=== PATIENT | male | born 1960 | race African-American/Black ===

== ENCOUNTER 2017-03-18 17:04 | Emergency (ER) | payer MEDICAID ==
[~2017-03-18] VITALS: Ht 180.3 cm; Wt 80.0 kg
[2017-03-18] MEDS ORDERED: SODIUM CHLORIDE 0.9% 1,000 ML IV ONE (17:38)
[2017-03-18 18:02] LABS: BASOPHILS % 0.4 % (0.0-2.0); EOSINOPHILS % 1.3 % (0.0-5.0); HEMATOCRIT. 45.6 % (42.0-52.0); HEMOGLOBIN. 15.2 g/dL (14.0-18.0); LYMPHOCYTES % 28.1 % (20.0-50.0); MEAN CORPUSCULAR HEMOGLOBIN 30.4 pg (28.0-32.0); MEAN CORPUSCULAR VOLUME 91.3 fL (80.0-94.0); MEAN PLATELET VOLUME 8.3 fl (7.4-10.4); NEUTROPHILS % 59.2 % (40.0-76.0); PLATELET 193 x1000/uL (130-400); RED BLOOD CELL COUNT 4.99 mill/uL (4.7-6.1); RED CELL DISTRIBUTION WIDTH 14.1 % (11.6-14.6)
[2017-03-18 18:09] LABS: PROTHROMBIN TIME 10.7 sec
[2017-03-18 18:10] LABS: CHLORIDE 103 mEq/L (98-107)
[2017-03-18 18:16] LABS: CLARITY URINE CLEAR (CLEAR); COLOR URINE YELLOW (YELLOW); GLUCOSE URINE NEGATIVE (NEGATIVE); KETONES URINE NEGATIVE (NEGATIVE); LEUKOCYTE ESTERASE URINE NEGATIVE (NEGATIVE); NITRITE URINE NEGATIVE (NEGATIVE); OCCULT BLOOD URINE NEGATIVE (NEGATIVE); PH URINE 7.5 (4.5-8.0); PROTEIN URINE NEGATIVE (NEGATIVE); SPECIFIC GRAVITY URINE 1.006 (1.005-1.030)
[2017-03-18 18:17] LABS: CARBON DIOXIDE 28 mEq/L (21-32); ETHANOL BLOOD < 10 mg/dL
[2017-03-18 18:57] LABS: *AMPHETAMINES SCREEN URINE NEGATIVE (NEGATIVE); *BARBITURATES SCREEN URINE NEGATIVE (NEGATIVE); *BENZODIAZEPINES SCREEN URINE NEGATIVE (NEGATIVE); *COCAINE SCREEN URINE NEGATIVE (NEGATIVE); CANNABINOID URINE SCREEN PRESUMTIVE POSITIVE (NEGATIVE); METHADONE URINE SCREEN NEGATIVE (NEGATIVE); OPIATES URINE SCREEN NEGATIVE (NEGATIVE); PHENCYCLIDINE URINE SCREEN PRESUMTIVE POSITIVE (NEGATIVE)
[2017-03-18 21:15] VITALS: BP 125/80
== END 2017-03-18 21:40 | disposition home or self-care (01) ==
LOC: ER 18:39
DX: R53.1 Weakness (principal); G35 Multiple sclerosis; G82.20 Paraplegia, unspecified; D72.829 Elevated white blood cell count, unspecified; F16.10 Hallucinogen abuse, uncomplicated; R00.1 Bradycardia, unspecified; S14.109S Unspecified injury at unspecified level of cervical spinal cord, sequela; X58.XXXS Exposure to other specified factors, sequela
CPT/HCPCS: 36415; 70450; 71010; 80053; 80305; 81003; 85025; 85610; 93005; 96360; 96361; 99285; G0482; J7030; Z7610

== ENCOUNTER 2018-01-10 01:58 | Emergency (ER) | payer MEDICAID ==
[~2018-01-10] VITALS: Ht 188 cm; Wt 90.0 kg
[2018-01-10] MEDS ORDERED: SODIUM CHLORIDE 0.9% 1,000 ML IV ONE (05:07)
[2018-01-10 05:40] LABS: BASOPHILS % 0.4 % (0.0-2.0); CHLORIDE 109 mEq/L (98-107); EOSINOPHILS % 1.7 % (0.0-5.0); HEMATOCRIT. 46.1 % (42.0-52.0); HEMOGLOBIN. 15.2 g/dL (14.0-18.0); LYMPHOCYTES % 18.8 % (20.0-50.0); MEAN CORPUSCULAR HEMOGLOBIN 29.9 pg (28.0-32.0); MEAN CORPUSCULAR VOLUME 90.7 fL (80.0-94.0); MEAN PLATELET VOLUME 8.4 fl (7.4-10.4); MONOCYTES % 9.4 % (2.0-8.0); NEUTROPHILS % 69.7 % (40.0-76.0); PLATELET 183 x1000/uL (130-400); RED BLOOD CELL COUNT 5.08 mill/uL (4.7-6.1); RED CELL DISTRIBUTION WIDTH 14.4 % (11.6-14.6)
[2018-01-10 05:41] LABS: PROTHROMBIN TIME 10.7 sec (9.4-11.6)
[2018-01-10 05:47] LABS: AMMONIA 21 uMol/L (<32)
[2018-01-10 05:48] LABS: ETHANOL BLOOD < 10 mg/dL
[2018-01-10 06:42] LABS: CLARITY URINE CLEAR (CLEAR); COLOR URINE YELLOW (YELLOW); KETONES URINE TRACE (NEGATIVE); LEUKOCYTE ESTERASE URINE NEGATIVE (NEGATIVE); NITRITE URINE NEGATIVE (NEGATIVE); OCCULT BLOOD URINE TRACE (NEGATIVE); PROTEIN URINE TRACE (NEGATIVE); SPECIFIC GRAVITY URINE 1.027 (1.005-1.030)
[2018-01-10 07:02] LABS: *AMPHETAMINES SCREEN URINE NEGATIVE (NEGATIVE)
[2018-01-10 07:03] LABS: *BARBITURATES SCREEN URINE NEGATIVE (NEGATIVE); *BENZODIAZEPINES SCREEN URINE NEGATIVE (NEGATIVE); *COCAINE SCREEN URINE NEGATIVE (NEGATIVE); METHADONE URINE SCREEN NEGATIVE (NEGATIVE); OPIATES URINE SCREEN NEGATIVE (NEGATIVE); PHENCYCLIDINE URINE SCREEN PRESUMTIVE POSITIVE (NEGATIVE)
[2018-01-10 07:04] LABS: CANNABINOID URINE SCREEN PRESUMTIVE POSITIVE (NEGATIVE)
[2018-01-10 08:40] VITALS: BP 140/96
== END 2018-01-10 09:10 | disposition home or self-care (01) ==
LOC: ER 01:58
DX: T40.991A Poisoning by other psychodysleptics [hallucinogens], accidental (unintentional), initial encounter (principal); G92 Toxic encephalopathy; F17.200 Nicotine dependence, unspecified, uncomplicated; F19.10 Other psychoactive substance abuse, uncomplicated; G82.20 Paraplegia, unspecified; G35 Multiple sclerosis; Y92.89 Other specified places as the place of occurrence of the external cause
CPT/HCPCS: 36415; 70450; 71045; 80053; 80305; 80307; 80329; 81003; 82140; 83605; 83690; 83880; 84443; 84484; 85025; 85610; 93005; 96360; 96361; 99285; G0482; J7030

== ENCOUNTER 2020-12-23 16:43 | Inpatient (IN) | payer MEDICAID ==
[~2020-12-23] VITALS: Ht 180.3 cm; Wt 73.0 kg
[~2020-12-23 16:43] MED LIST: ALBU18HF2 IH; BENZ-16 MT; FLUT1DIS3 INH; LEVO750T21 MT
[2020-12-23 17:59] LABS: BASOPHILS % 0.2 % (0.0-2.0); EOSINOPHILS % 0.5 % (0.0-5.0); HEMATOCRIT. 45.9 % (42.0-52.0); HEMOGLOBIN. 15.3 g/dL (14.0-18.0); LYMPHOCYTES % 19.4 % (20.0-50.0); MEAN CORPUSCULAR HEMOGLOBIN 30.5 pg (28.0-32.0); MEAN CORPUSCULAR VOLUME 91.3 fL (80.0-94.0); MEAN PLATELET VOLUME 8.4 fl (7.4-10.4); MONOCYTES % 11.4 % (2.0-8.0); NEUTROPHILS % 68.5 % (40.0-76.0); PLATELET 199 x1000/uL (130-400); RED BLOOD CELL COUNT 5.03 mill/uL (4.7-6.1)
[2020-12-23 18:06] LABS: CHLORIDE 105 mEq/L (98-107)
[2020-12-23 18:15] LABS: CREATINE KINASE 199 IU/L (39-308)
[2020-12-23 21:49] VITALS: BP 151/87
[2020-12-23 21:51] VITALS: BP 151/87
[2020-12-23] MEDS ORDERED: DOCUSATE SODIUM 100MG CAPSULE PO PRN (22:00)
[2020-12-23] MEDS ORDERED: IPRATROPIUM/ALBUTEROL 0.5-3(2.5)MG/3ML NEB HHN PRN (22:00)
[2020-12-23] MEDS: SODIUM CHLORIDE 0.9% INJ 3ML FLUSH IVF SCH (22:00)
[2020-12-23] MEDS ORDERED: MAGNESIUM/ALUMINUM HYDROXIDE/SIMETHICONE 30ML UDC PO PRN (22:00)
[2020-12-23] MEDS ORDERED: ACETAMINOPHEN 325MG TABLET PO PRN (22:00)
[2020-12-23] MEDS ORDERED: CLONIDINE 0.1MG TABLET PO PRN (22:00)
[2020-12-23] MEDS ORDERED: HYDROCODONE/ACETAMINOPHEN 5/325MG TABLET PO PRN (22:00)
[2020-12-23] MEDS ORDERED: GUAIFENESIN 200MG/10ML SUGAR FREE UDC PO PRN (22:00)
[2020-12-23] MEDS ORDERED: DIPHENHYDRAMINE 50MG/ML VIAL IV PRN (22:00)
[2020-12-23] MEDS ORDERED: ONDANSETRON HCL 4MG/2ML INJ IV PRN (22:00)
[2020-12-23] MEDS ORDERED: HYDRALAZINE 20MG/ML VIAL IV PRN (22:00)
[2020-12-23] MEDS ORDERED: HYDRALAZINE 10 MG in SODIUM CHLORIDE 0.9% 49.5 ML IV PRN (22:15)
[2020-12-24] VITALS: BP 107/51
[2020-12-24 04:00] VITALS: BP 126/70
[2020-12-24 05:00] LABS: CLARITY URINE CLEAR (CLEAR); COLOR URINE YELLOW (YELLOW); KETONES URINE NEGATIVE (NEGATIVE); LEUKOCYTE ESTERASE URINE TRACE (NEGATIVE); NITRITE URINE NEGATIVE (NEGATIVE); OCCULT BLOOD URINE NEGATIVE (NEGATIVE); PROTEIN URINE NEGATIVE (NEGATIVE); SPECIFIC GRAVITY URINE 1.028 (1.005-1.030); UROBILINOGEN URINE 0.2 E.U./dL (0.2-1.0)
[2020-12-24 05:12] LABS: *BARBITURATES SCREEN URINE NEGATIVE (NEGATIVE); *BENZODIAZEPINES SCREEN URINE NEGATIVE (NEGATIVE)
[2020-12-24 05:13] LABS: *AMPHETAMINES SCREEN URINE NEGATIVE (NEGATIVE); *COCAINE SCREEN URINE PRESUMTIVE POSITIVE (NEGATIVE); CANNABINOID URINE SCREEN PRESUMTIVE POSITIVE (NEGATIVE); METHADONE URINE SCREEN NEGATIVE (NEGATIVE); OPIATES URINE SCREEN NEGATIVE (NEGATIVE); PHENCYCLIDINE URINE SCREEN PRESUMTIVE POSITIVE (NEGATIVE)
[2020-12-24 06:52] LABS: CHLORIDE 106 mEq/L (98-107)
[2020-12-24 07:05] LABS: BASOPHILS % 0.2 % (0.0-2.0); EOSINOPHILS % 1.6 % (0.0-5.0); HEMATOCRIT. 43.2 % (42.0-52.0); HEMOGLOBIN. 13.7 g/dL (14.0-18.0); LYMPHOCYTES % 31.8 % (20.0-50.0); MEAN CORPUSCULAR HEMOGLOBIN 29.5 pg (28.0-32.0); MEAN CORPUSCULAR VOLUME 92.9 fL (80.0-94.0); MEAN PLATELET VOLUME 8.6 fl (7.4-10.4); MONOCYTES % 11.3 % (2.0-8.0); NEUTROPHILS % 55.1 % (40.0-76.0); PLATELET 189 x1000/uL (130-400); RED BLOOD CELL COUNT 4.65 mill/uL (4.7-6.1); RED CELL DISTRIBUTION WIDTH 14.8 % (11.6-14.6)
[2020-12-24 08:00] VITALS: BP 140/76
[2020-12-24] MEDS: ENOXAPARIN 40MG/0.4ML SYR SUBCUT SCH (08:20)
[2020-12-24 12:00] VITALS: BP 129/89
[2020-12-24] MEDS: SODIUM CHLORIDE 0.9% INJ 3ML FLUSH IVF SCH ×2 (14:28→22:00)
[2020-12-24 16:00] VITALS: BP 131/72
[2020-12-24 20:27] VITALS: BP 128/82
[2020-12-25] VITALS (7 sets, daily range): BP systolic 112–166; BP diastolic 61–96
[2020-12-25] MEDS: SODIUM CHLORIDE 0.9% INJ 3ML FLUSH IVF SCH ×3 (06:33→22:00)
[2020-12-25] MEDS: ENOXAPARIN 40MG/0.4ML SYR SUBCUT SCH (08:59)
[2020-12-25] MEDS: MORPHINE SULFATE 2 MG/ML CPJ (NOT FOR IM USE) IV PRN (18:06)
[2020-12-25] MEDS: LORAZEPAM 2MG/ML CPJ IV PRN (23:26)
[2020-12-26] VITALS: BP 139/87
[2020-12-26 04:00] VITALS: BP 139/99
[2020-12-26] MEDS: SODIUM CHLORIDE 0.9% INJ 3ML FLUSH IVF SCH ×3 (06:28→22:00)
[2020-12-26 08:00] VITALS: BP 147/89
[2020-12-26] MEDS: ENOXAPARIN 40MG/0.4ML SYR SUBCUT SCH (09:50)
[2020-12-26] MEDS: MORPHINE SULFATE 2 MG/ML CPJ (NOT FOR IM USE) IV PRN ×2 (09:50→18:41)
[2020-12-26 12:00] VITALS: BP 121/77
[2020-12-26 16:00] VITALS: BP 115/62
[2020-12-26 20:00] VITALS: BP 106/72
[2020-12-27] VITALS (7 sets, daily range): BP systolic 105–124; BP diastolic 69–83
[2020-12-27] MEDS: SODIUM CHLORIDE 0.9% INJ 3ML FLUSH IVF SCH ×3 (06:00→22:00)
[2020-12-27] MEDS: LORAZEPAM 2MG/ML CPJ IV PRN (07:14)
[2020-12-27] MEDS: ENOXAPARIN 40MG/0.4ML SYR SUBCUT SCH (08:16)
[2020-12-27] MEDS: MORPHINE SULFATE 2 MG/ML CPJ (NOT FOR IM USE) IV PRN ×2 (08:28→20:07)
[2020-12-28] VITALS: BP 109/70
[2020-12-28 04:00] VITALS: BP 119/86
[2020-12-28] MEDS: SODIUM CHLORIDE 0.9% INJ 3ML FLUSH IVF SCH ×2 (06:00→12:42)
[2020-12-28 08:00] VITALS: BP 91/66
[2020-12-28] MEDS: ENOXAPARIN 40MG/0.4ML SYR SUBCUT SCH (08:50)
[2021-03-08] MEDS ORDERED: CLOP75TA15 PO (16:25)
[2021-03-08] MEDS ORDERED: LIP40 PO (16:25)
== END 2020-12-28 14:45 | disposition home or self-care (01) | DRG 421 ==
LOC: ER 16:43 → 6EST 19:08 → EDBEDREQ 19:25 → ENRESERV 19:43
PROVIDERS: ADMIT Internal Medicine; ATTEND Internal Medicine
DX: R62.7 Adult failure to thrive (principal); G82.20 Paraplegia, unspecified; E44.1 Mild protein-calorie malnutrition; R53.1 Weakness; F12.10 Cannabis abuse, uncomplicated; F14.10 Cocaine abuse, uncomplicated; I10 Essential (primary) hypertension; Z20.822 Contact with and (suspected) exposure to COVID-19; Z60.2 Problems related to living alone; J44.9 Chronic obstructive pulmonary disease, unspecified; Z99.3 Dependence on wheelchair; Z91.412 Personal history of adult neglect; Z79.51 Long term (current) use of inhaled steroids; Z68.22 Body mass index [BMI] 22.0-22.9, adult; Z79.899 Other long term (current) drug therapy; Z98.890 Other specified postprocedural states; F16.10 Hallucinogen abuse, uncomplicated
CPT/HCPCS: 36415; 80048; 80053; 80305; 81003; 82550; 85025; 87426; 93005; 94640; 97162; 99285; J1650; J2060; J2270

== ENCOUNTER 2021-02-07 16:28 | Emergency (ER) | payer MEDICAID ==
[~2021-02-07] VITALS: Ht 180.3 cm; Wt 91.0 kg
[~2021-02-07 16:28] MED LIST changes: -LEVO750T21 MT
[2021-02-07] MEDS ORDERED: KETOROLAC 60MG/2ML VIAL IM ONE (17:15)
[2021-02-07] MEDS ORDERED: CELE100C MT (20:16)
[2021-02-07] MEDS ORDERED: GABA-532 MT (20:16)
[2021-02-07 22:56] VITALS: BP 130/65
== END 2021-02-07 23:14 | disposition home or self-care (01) ==
LOC: ER 16:28
DX: M54.5 Low back pain (principal); G89.29 Other chronic pain; G82.20 Paraplegia, unspecified; I10 Essential (primary) hypertension; J45.909 Unspecified asthma, uncomplicated; F12.90 Cannabis use, unspecified, uncomplicated; Z99.3 Dependence on wheelchair
CPT/HCPCS: 72131; 96372; 99284; J1885

== ENCOUNTER 2021-06-18 09:56 | Emergency (ER) | payer MEDICAID ==
[~2021-06-18] VITALS: Ht 180.3 cm; Wt 90.0 kg
[~2021-06-18 09:56] MED LIST changes: +CELE100C MT; +CLOP75TA15 PO; +GABA-532 MT; +LIP40 PO
[2021-06-18] MEDS ORDERED: IPRATROPIUM BROMIDE (0.02%) 0.5MG/2.5ML NEB HHN STA (10:05)
[2021-06-18] MEDS ORDERED: ALBUTEROL (0.083%) 2.5MG/3ML NEB HHN STA (10:05)
[2021-06-18] MEDS ORDERED: PREDNISONE 20MG TABLET PO STA (10:05)
[2021-06-18] MEDS ORDERED: ALBU6.7H9 INH (11:45)
[2021-06-18] MEDS ORDERED: P50 PO (11:45)
[2021-06-18 13:34] VITALS: BP 174/102
== END 2021-06-18 13:51 | disposition home or self-care (01) ==
LOC: ER 09:56
DX: J45.901 Unspecified asthma with (acute) exacerbation (principal)
CPT/HCPCS: 94640; 99283; J7512; Z7610

== ENCOUNTER 2021-12-22 10:51 | Emergency (ER) | payer MEDICAID ==
[~2021-12-22] VITALS: Ht 177.8 cm; Wt 73.0 kg
[~2021-12-22 10:51] MED LIST changes: +ALBU6.7H9 INH; +P50 PO
[2021-12-22] MEDS ORDERED: CEPHALEXIN 250MG CAPSULE PO ONE (11:30)
[2021-12-22] MEDS ORDERED: TETANUS, DIPHTHERIA, PERTUSSIS VAC/PF 0.5ML (>10YR OLD) IM ONE (11:30)
[2021-12-22] MEDS ORDERED: DOXY150T9 MT (12:17)
[2021-12-22 12:18] VITALS: BP 147/84
== END 2021-12-22 12:41 | disposition home or self-care (01) ==
LOC: ER 10:51
DX: L02.413 Cutaneous abscess of right upper limb (principal); L03.113 Cellulitis of right upper limb; R03.0 Elevated blood-pressure reading, without diagnosis of hypertension; Z88.0 Allergy status to penicillin
CPT/HCPCS: 90471; 90715; 99283

== ENCOUNTER 2022-03-06 15:34 | Emergency (ER) | payer MEDICAID ==
[~2022-03-06] VITALS: Ht 170.2 cm; Wt 72.0 kg
[~2022-03-06 15:34] MED LIST changes: +DOXY150T9 MT
[2022-03-06 17:45] VITALS: BP 126/87
[2022-03-06] MEDS ORDERED: IBUPROFEN 600MG TABLET PO ONE (17:45)
[2022-03-06] MEDS ORDERED: IBUP-2029 MT (17:45)
== END 2022-03-06 17:56 | disposition home or self-care (01) ==
LOC: ER 15:34
DX: M79.18 Myalgia, other site (principal)
CPT/HCPCS: 99283

== ENCOUNTER 2023-01-14 12:35 | Emergency (ER) | payer MEDICAID ==
[~2023-01-14] VITALS: Ht 177.8 cm; Wt 91.0 kg
[~2023-01-14 12:35] MED LIST changes: +ALBU6.7H3 INH; -ALBU6.7H9 INH; +IBUP-2029 MT
[2023-01-14 12:38] VITALS: BP 182/111
[2023-01-14] MEDS ORDERED: ACETAMINOPHEN 325MG TABLET PO ONE (13:00)
[2023-01-14] MEDS ORDERED: ACETAMINOPHEN 325MG TABLET PO NR (15:15)
== END 2023-01-14 16:42 | disposition home or self-care (01) ==
LOC: ER 12:35
DX: M79.10 Myalgia, unspecified site (principal); F12.90 Cannabis use, unspecified, uncomplicated; I10 Essential (primary) hypertension; J45.909 Unspecified asthma, uncomplicated; Z88.0 Allergy status to penicillin
CPT/HCPCS: 99283

== ENCOUNTER 2023-03-18 19:21 | Emergency (ER) | payer MEDICAID ==
[~2023-03-18] VITALS: Ht 182.9 cm; Wt 68.0 kg
[2023-03-18 19:22] VITALS: O2SAT 98
[2023-03-19] MEDS ORDERED: IBUPROFEN 800MG TABLET PO ONE (00:15)
[2023-03-19] MEDS ORDERED: GABAPENTIN 300MG CAPSULE PO SCH (00:15)
[2023-03-19 00:28] LABS: BASOPHILS % 0.3 % (0.0-2.0); HEMATOCRIT. 41.5 % (42.0-52.0); HEMOGLOBIN. 13.4 g/dL (14.0-18.0); LYMPHOCYTES % 27.3 % (20.0-50.0); MEAN CORPUSCULAR HEMOGLOBIN 29.2 pg (28.0-32.0); MEAN CORPUSCULAR VOLUME 90.9 fL (80.0-94.0); MEAN PLATELET VOLUME 9.4 fl (7.4-10.4); MONOCYTES % 12.9 % (2.0-8.0); NEUTROPHILS % 57.5 % (40.0-76.0); PLATELET 218 x1000/uL (130-400); RED BLOOD CELL COUNT 4.57 mill/uL (4.7-6.1); RED CELL DISTRIBUTION WIDTH 14.4 % (11.6-14.6)
[2023-03-19 00:33] LABS: CHLORIDE 104 mEq/L (98-107)
[2023-03-19] MEDS ORDERED: IBUP-2029 MT (03:10)
[2023-03-19] MEDS ORDERED: P50 PO (03:10)
[2023-03-19] MEDS ORDERED: GABA-532 MT (03:10)
[2023-03-19 06:00] VITALS: BP 123/74; PULSE 59; RESP 11; TEMP 97.9
== END 2023-03-19 10:58 | disposition home or self-care (01) ==
LOC: ER 19:21
DX: M25.512 Pain in left shoulder (principal); M25.511 Pain in right shoulder; I10 Essential (primary) hypertension; J45.909 Unspecified asthma, uncomplicated; F12.10 Cannabis abuse, uncomplicated; F17.200 Nicotine dependence, unspecified, uncomplicated; F16.10 Hallucinogen abuse, uncomplicated; Z88.0 Allergy status to penicillin; Z79.899 Other long term (current) drug therapy; Z98.890 Other specified postprocedural states; W05.0XXA Fall from non-moving wheelchair, initial encounter; Y93.89 Activity, other specified; Y92.89 Other specified places as the place of occurrence of the external cause; Y99.8 Other external cause status
CPT/HCPCS: 80053; 83880; 85025; 84484; 36415; 99285; 71045; 73030; 93005; Z7610 ×2

== ENCOUNTER 2023-03-28 12:07 | Inpatient (IN) | payer MEDICAID ==
[~2023-03-28] VITALS: Ht 180.3 cm; Wt 76.9 kg
[2023-03-28] MEDS ORDERED: IOHEXOL-350 100 ML BOTTLE ONE (12:18)
[2023-03-28 13:10] LABS: BASOPHILS % 0.3 % (0.0-2.0); EOSINOPHILS % 1.2 % (0.0-5.0); HEMATOCRIT. 42.6 % (42.0-52.0); MEAN CORPUSCULAR HEMOGLOBIN 29.7 pg (28.0-32.0); MEAN CORPUSCULAR VOLUME 90.7 fL (80.0-94.0); MEAN PLATELET VOLUME 8.3 fl (7.4-10.4); NEUTROPHILS % 67.5 % (40.0-76.0); PLATELET 257 x1000/uL (130-400); RED CELL DISTRIBUTION WIDTH 14.6 % (11.6-14.6)
[2023-03-28 13:22] LABS: ETHANOL BLOOD < 10 mg/dL (-10)
[2023-03-28 14:00] LABS: CHLORIDE 105 mEq/L (98-107)
[2023-03-28 14:19] LABS: CLARITY URINE SL HAZY (CLEAR); COLOR URINE YELLOW (YELLOW)
[2023-03-28 14:20] LABS: KETONES URINE TRACE (NEGATIVE); LEUKOCYTE ESTERASE URINE NEGATIVE (NEGATIVE); NITRITE URINE NEGATIVE (NEGATIVE); OCCULT BLOOD URINE TRACE (NEGATIVE); PROTEIN URINE NEGATIVE (NEGATIVE); UROBILINOGEN URINE 0.2 E.U./dL (0.2-1.0)
[2023-03-28 14:20] LABS: PROTHROMBIN TIME 10.6 sec (9.6-11.0)
[2023-03-28] MEDS ORDERED: LORAZEPAM 2MG/ML CPJ IV ONE (14:30)
[2023-03-28 14:57] LABS: *AMPHETAMINES SCREEN URINE NEGATIVE (NEGATIVE); *BARBITURATES SCREEN URINE NEGATIVE (NEGATIVE); *BENZODIAZEPINES SCREEN URINE NEGATIVE (NEGATIVE); *COCAINE SCREEN URINE PRESUMTIVE POSITIVE (NEGATIVE); CANNABINOID URINE SCREEN PRESUMTIVE POSITIVE (NEGATIVE); METHADONE URINE SCREEN NEGATIVE (NEGATIVE); OPIATES URINE SCREEN NEGATIVE (NEGATIVE); PHENCYCLIDINE URINE SCREEN PRESUMTIVE POSITIVE (NEGATIVE)
[2023-03-28] MEDS ORDERED: ONDANSETRON HCL 4MG/2ML INJ IV PRN (15:00)
[2023-03-28] MEDS ORDERED: NALOXONE HCL 0.4MG/ML VIAL IV PRN (15:00)
[2023-03-28] MEDS ORDERED: ACETAMINOPHEN 325MG TABLET PO PRN ×2 (15:00)
[2023-03-28] MEDS ORDERED: LORAZEPAM 0.5MG TABLET PO PRN (15:00)
[2023-03-28] MEDS ORDERED: CLONIDINE 0.1MG TABLET PO PRN (15:00)
[2023-03-28] MEDS ORDERED: DOCUSATE SODIUM 100MG CAPSULE PO PRN (15:00)
[2023-03-28] MEDS ORDERED: IPRATROPIUM/ALBUTEROL 0.5-3(2.5)MG/3ML NEB HHN PRN (15:00)
[2023-03-28] MEDS: HYDRALAZINE 20MG/ML VIAL IV PRN ×2 (19:01→23:58)
[2023-03-28 22:00] VITALS: BP 196/106; PULSE 68; RESP 18; TEMP 97.3
[2023-03-28 22:08] VITALS: BP 196/106; PULSE 68; RESP 18; TEMP 97.3
[2023-03-29] VITALS (9 sets, daily range): BP systolic 121–182; BP diastolic 81–108; PULSE 64–82; RESP 18–22; TEMP 97.1–98; O2SAT 98
[2023-03-29 11:13] LABS: BASOPHILS % 0.2 % (0.0-2.0); EOSINOPHILS % 1.6 % (0.0-5.0); HEMATOCRIT. 41.8 % (42.0-52.0); LYMPHOCYTES % 16.1 % (20.0-50.0); MEAN CORPUSCULAR HEMOGLOBIN 30.2 pg (28.0-32.0); MEAN CORPUSCULAR VOLUME 90.4 fL (80.0-94.0); MEAN PLATELET VOLUME 8.6 fl (7.4-10.4); MONOCYTES % 13.7 % (2.0-8.0); NEUTROPHILS % 68.4 % (40.0-76.0); PLATELET 265 x1000/uL (130-400); RED BLOOD CELL COUNT 4.62 mill/uL (4.7-6.1); RED CELL DISTRIBUTION WIDTH 14.7 % (11.6-14.6)
[2023-03-29 12:09] LABS: CHLORIDE 105 mEq/L (98-107)
[2023-03-29] MEDS: IPRATROPIUM/ALBUTEROL 0.5-3(2.5)MG/3ML NEB HHN SCH ×2 (13:41→20:01)
[2023-03-29] MEDS: HYDROCODONE/ACETAMINOPHEN 5/325MG TABLET PO PRN (22:02)
[2023-03-29] MEDS: ATORVASTATIN CALCIUM 40MG TABLET PO SCH (22:02)
[2023-03-30] VITALS (12 sets, daily range): BP systolic 121–150; BP diastolic 80–97; PULSE 58–93; RESP 18–20; TEMP 97.3–98.2; O2SAT 96–98
[2023-03-30] MEDS: IPRATROPIUM/ALBUTEROL 0.5-3(2.5)MG/3ML NEB HHN SCH ×6 (00:08→20:55)
[2023-03-30] MEDS: CLOPIDOGREL 75MG TABLET PO SCH (08:59)
[2023-03-30] MEDS: HYDROCODONE/ACETAMINOPHEN 5/325MG TABLET PO PRN ×2 (17:16→21:19)
[2023-03-30] MEDS: ATORVASTATIN CALCIUM 40MG TABLET PO SCH (21:18)
[2023-03-31] VITALS (11 sets, daily range): BP systolic 97–127; BP diastolic 50–87; PULSE 77–95; RESP 16–20; TEMP 96.3–98.8; O2SAT 92–98
[2023-03-31] MEDS: IPRATROPIUM/ALBUTEROL 0.5-3(2.5)MG/3ML NEB HHN SCH ×5 (00:09→21:29)
[2023-03-31] MEDS: HYDROCODONE/ACETAMINOPHEN 5/325MG TABLET PO PRN ×4 (01:28→19:58)
[2023-03-31] MEDS: CLOPIDOGREL 75MG TABLET PO SCH (08:14)
[2023-03-31] MEDS: ATORVASTATIN CALCIUM 40MG TABLET PO SCH (19:58)
[2023-04-01] VITALS (12 sets, daily range): BP systolic 100–129; BP diastolic 69–79; PULSE 78–100; RESP 16–20; TEMP 97.7–98.8; O2SAT 96
[2023-04-01] MEDS: HYDROCODONE/ACETAMINOPHEN 5/325MG TABLET PO PRN ×4 (00:17→20:40)
[2023-04-01] MEDS: IPRATROPIUM/ALBUTEROL 0.5-3(2.5)MG/3ML NEB HHN SCH ×6 (00:44→21:57)
[2023-04-01] MEDS: CLOPIDOGREL 75MG TABLET PO SCH (08:46)
[2023-04-01] MEDS: ATORVASTATIN CALCIUM 40MG TABLET PO SCH (20:40)
[2023-04-02] VITALS (10 sets, daily range): BP systolic 91–119; BP diastolic 64–85; PULSE 72–91; RESP 18–20; TEMP 97.3–98.1; O2SAT 97–98
[2023-04-02] MEDS: HYDROCODONE/ACETAMINOPHEN 5/325MG TABLET PO PRN (00:16)
[2023-04-02] MEDS: IPRATROPIUM/ALBUTEROL 0.5-3(2.5)MG/3ML NEB HHN SCH ×5 (02:40→16:35)
[2023-04-02] MEDS: CLOPIDOGREL 75MG TABLET PO SCH (09:02)
[2023-04-02] MEDS ORDERED: CLOP-31 PO (14:36)
[2023-04-02] MEDS ORDERED: LIP40 PO (14:36)
== END 2023-04-02 20:30 | disposition home or self-care (01) | DRG 52 ==
LOC: ER 12:07 → 7WST 14:19 → EDBEDREQTM 14:52 → EDBEDREQ 14:52 → ENRESERV 21:14
PROVIDERS: ADMIT Internal Medicine; ATTEND Internal Medicine
DX: G92.8 Other toxic encephalopathy (principal); G82.20 Paraplegia, unspecified; F03.90 Unspecified dementia, unspecified severity, without behavioral disturbance, psychotic disturbance, mood disturbance, and anxiety; I69.354 Hemiplegia and hemiparesis following cerebral infarction affecting left non-dominant side; I16.1 Hypertensive emergency; D72.821 Monocytosis (symptomatic); J45.909 Unspecified asthma, uncomplicated; F19.10 Other psychoactive substance abuse, uncomplicated; I10 Essential (primary) hypertension; Z99.3 Dependence on wheelchair; Z88.0 Allergy status to penicillin
CPT/HCPCS: 36415; 70496; 70498; 71045; 80048; 80053; 80305; 80320; 81003; 84484; 85025; 93005; 93306; 94640; 94664; 97162; 99291; J0360; J2060; Q9967; G0480

== ENCOUNTER 2023-04-10 00:46 | Inpatient (IN) | payer MEDICAID ==
[~2023-04-10] VITALS: Ht 177.8 cm; Wt 75.7 kg
[~2023-04-10 00:46] MED LIST changes: +CLOP-31 PO; -CLOP75TA15 PO; -DOXY150T9 MT; -IBUP-2029 MT; -P50 PO
[2023-04-10] MEDS ORDERED: ALBUTEROL (0.083%) 2.5MG/3ML NEB HHN STA (00:54)
[2023-04-10] MEDS ORDERED: IPRATROPIUM BROMIDE (0.02%) 0.5MG/2.5ML NEB HHN STA (00:54)
[2023-04-10] MEDS ORDERED: ASPIRIN 325MG TABLET PO ONE (01:00)
[2023-04-10 01:50] VITALS: PULSE 68; RESP 18; O2SAT 97
[2023-04-10] MEDS ORDERED: LORAZEPAM 2MG/ML CPJ IV ONE (04:30)
[2023-04-10] MEDS ORDERED: MORPHINE SULFATE 4 MG/ML CPJ (NOT FOR IM USE) IV ONE (04:30)
[2023-04-10 04:38] LABS: BASOPHILS % 0.1 % (0.0-2.0); EOSINOPHILS % 0.1 % (0.0-5.0); HEMATOCRIT. 34.4 % (42.0-52.0); LYMPHOCYTES % 13.7 % (20.0-50.0); MEAN CORPUSCULAR HEMOGLOBIN 28.5 pg (28.0-32.0); MEAN CORPUSCULAR HGB CONC 31.9 g/dL (31.0-37.0); MEAN CORPUSCULAR VOLUME 89.5 fL (80.0-94.0); MEAN PLATELET VOLUME 7.8 fl (7.4-10.4); MONOCYTES % 9.4 % (2.0-8.0); NEUTROPHILS % 76.7 % (40.0-76.0); PLATELET 277 x1000/uL (130-400); RED BLOOD CELL COUNT 3.84 mill/uL (4.7-6.1); RED CELL DISTRIBUTION WIDTH 13.7 % (11.6-14.6); WHITE BLOOD COUNT 14.1 x1000/uL (4.5-11.0)
[2023-04-10 04:48] LABS: CHLORIDE 107 mEq/L (98-107); INDEX HEMOLYSI 4 (1-3); INDEX ICTERIC 1 (1-4); INDEX LIPEMIC 1 (1-3); POTASSIUM 4.7 mEq/L (3.5-5.1); SODIUM 138 mEq/L (136-145)
[2023-04-10 04:57] LABS: ALANINE AMINOTRANSFERASE 69 IU/L (13-61); ALBUMIN 2.7 g/dL (3.4-5.0); ASPARTATE AMINOTRANSFERASE 68 IU/L (15-37); BILIRUBIN TOTAL 0.2 mg/dL (0.1-1.0); CALCIUM 8.2 mg/dL (8.5-10.1); CARBON DIOXIDE 28 mEq/L (21-32); CREATININE 0.8 mg/dL (0.6-1.3); GLUCOSE 164 mg/dL (70-105); NT PRO B-TYPE NATRIURETIC PEP 121 pg/mL (5-125); PROTEIN TOTAL 6.8 g/dL (6.0-8.3); UREA NITROGEN BLOOD 24 mg/dL (7-21)
[2023-04-10 05:09] LABS: TROPONIN I HIGH SENSITIVITY 210 ng/L (<78)
[2023-04-10] MEDS ORDERED: ASPIRIN 325MG TABLET PO NR (05:15)
[2023-04-10 07:10] LABS: TROPONIN I HIGH SENSITIVITY 246 ng/L (<78)
[2023-04-10] MEDS ORDERED: IPRATROPIUM/ALBUTEROL 0.5-3(2.5)MG/3ML NEB NEB PRN (07:15)
[2023-04-10] MEDS ORDERED: ACETAMINOPHEN 325MG TABLET PO PRN ×2 (07:15)
[2023-04-10] MEDS ORDERED: MAGNESIUM/ALUMINUM HYDROXIDE/SIMETHICONE 30ML UDC PO PRN (07:15)
[2023-04-10] MEDS ORDERED: DOCUSATE SODIUM 100MG CAPSULE PO PRN (07:15)
[2023-04-10] MEDS ORDERED: ONDANSETRON HCL 4MG/2ML INJ IV PRN (07:15)
[2023-04-10] MEDS ORDERED: CLONIDINE 0.1MG TABLET PO PRN (07:15)
[2023-04-10] MEDS ORDERED: ZOLPIDEM TARTRATE 5MG TABLET PO PRN (07:15)
[2023-04-10] MEDS ORDERED: GUAIFENESIN 200MG/10ML SUGAR FREE UDC PO PRN (07:15)
[2023-04-10] MEDS ORDERED: NITROGLYCERIN 0.4MG TABLET SL SL PRN (07:15)
[2023-04-10 08:14] LABS: INDEX HEMOLYSI 1 (1-3); INDEX ICTERIC 1 (1-4); INDEX LIPEMIC 1 (1-3)
[2023-04-10 08:28] LABS: CHOLESTEROL 140 mg/dL (<200); ETHANOL BLOOD < 10 mg/dL (-10); HDL CHOLESTEROL 48 mg/dL (40-59); IRON 55 ug/dL (50-175); LDL CHOLESTEROL 97 mg/dL (5-100); T4 FREE 1.17 ng/dL (0.76-1.46); TOTAL IRON BINDING CAPACITY 223 ug/dL (250-450); TRIGLYCERIDE 60 mg/dL (0-150)
[2023-04-10 08:45] LABS: FOLIC ACID (FOLATE) SERUM 7.4 ng/mL (>5.38)
[2023-04-10] MEDS: ENOXAPARIN 40MG/0.4ML SYR SUBCUT SCH (09:00)
[2023-04-10] MEDS ORDERED: METOPROLOL TARTRATE 25MG TABLET PO SCH (09:00)
[2023-04-10] MEDS: FAMOTIDINE 20MG TABLET PO SCH ×2 (09:00→20:22)
[2023-04-10] MEDS ORDERED: DIPHENHYDRAMINE 25MG CAPSULE PO PRN (10:15)
[2023-04-10] MEDS: AMLODIPINE 5MG TABLET PO SCH (10:30)
[2023-04-10] MEDS: ASPIRIN 81MG TABLET PO SCH (10:30)
[2023-04-10] MEDS ORDERED: CEFTRIAXONE 1GM PREMIX 50 ML IV SCH (11:00)
[2023-04-10] MEDS: FUROSEMIDE 40MG/4ML VIAL IVP SCH (12:19)
[2023-04-10] MEDS: KETOROLAC 15MG/ML VIAL IV PRN ×2 (12:46→20:22)
[2023-04-10 20:00] VITALS: BP 95/57; PULSE 63; RESP 16; TEMP 96.9
[2023-04-10 21:25] LABS: CREATINE KINASE MB FRACTION 3.5 ng/mL (0.5-3.6)
[2023-04-10 23:12] VITALS: BP 95/57; PULSE 63; RESP 18; TEMP 96.9
[2023-04-10 23:42] LABS: CREATINE KINASE MB FRACTION 3.2 ng/mL (0.5-3.6)
[2023-04-11] VITALS: BP 95/53; PULSE 63; RESP 16; TEMP 97.1
[2023-04-11 04:00] VITALS: BP 105/64; PULSE 66; RESP 18; TEMP 97.7
[2023-04-11 07:21] LABS: BASOPHILS % 0.3 % (0.0-2.0); EOSINOPHILS % 2.8 % (0.0-5.0); HEMATOCRIT. 36.3 % (42.0-52.0); LYMPHOCYTES % 30.9 % (20.0-50.0); MEAN CORPUSCULAR HEMOGLOBIN 30.1 pg (28.0-32.0); MEAN CORPUSCULAR HGB CONC 33.2 g/dL (31.0-37.0); MEAN CORPUSCULAR VOLUME 90.7 fL (80.0-94.0); MEAN PLATELET VOLUME 8.4 fl (7.4-10.4); MONOCYTES % 10.9 % (2.0-8.0); NEUTROPHILS % 55.1 % (40.0-76.0); PLATELET 290 x1000/uL (130-400); RED BLOOD CELL COUNT 4.01 mill/uL (4.7-6.1); RED CELL DISTRIBUTION WIDTH 13.7 % (11.6-14.6); WHITE BLOOD COUNT 8.8 x1000/uL (4.5-11.0)
[2023-04-11 08:00] VITALS: BP 130/89; PULSE 100; RESP 20; TEMP 96.1
[2023-04-11 08:03] LABS: CHLORIDE 104 mEq/L (98-107); INDEX HEMOLYSI 1 (1-3); INDEX ICTERIC 1 (1-4); INDEX LIPEMIC 1 (1-3); SODIUM 136 mEq/L (136-145)
[2023-04-11 08:11] LABS: ALANINE AMINOTRANSFERASE 47 IU/L (13-61); ALBUMIN 2.6 g/dL (3.4-5.0); ASPARTATE AMINOTRANSFERASE 22 IU/L (15-37); BILIRUBIN TOTAL 0.2 mg/dL (0.1-1.0); CALCIUM 8.3 mg/dL (8.5-10.1); CARBON DIOXIDE 29 mEq/L (21-32); CREATININE 0.8 mg/dL (0.6-1.3); GLUCOSE 88 mg/dL (70-105); PHOSPHORUS 3.1 mg/dL (2.5-4.9); PROTEIN TOTAL 6.6 g/dL (6.0-8.3); UREA NITROGEN BLOOD 22 mg/dL (7-21)
[2023-04-11] MEDS: FUROSEMIDE 40MG/4ML VIAL IVP SCH (08:53)
[2023-04-11] MEDS: ASPIRIN 81MG TABLET PO SCH (08:53)
[2023-04-11] MEDS: ENOXAPARIN 40MG/0.4ML SYR SUBCUT SCH (08:53)
[2023-04-11] MEDS: FAMOTIDINE 20MG TABLET PO SCH ×2 (08:54→21:46)
[2023-04-11] MEDS: AMLODIPINE 5MG TABLET PO SCH (08:54)
[2023-04-11] MEDS ORDERED: ASPIRIN 325MG EC TABLET PO SCH (09:00)
[2023-04-11] MEDS ORDERED: IOHEXOL-350 100 ML BOTTLE ONE (09:56)
[2023-04-11] MEDS ORDERED: MAGNESIUM 2 G PREMIX 50 ML IV SCH (10:00)
[2023-04-11 11:22] LABS: *AMPHETAMINES SCREEN URINE NEGATIVE (NEGATIVE); *BARBITURATES SCREEN URINE NEGATIVE (NEGATIVE); *BENZODIAZEPINES SCREEN URINE NEGATIVE (NEGATIVE); *COCAINE SCREEN URINE NEGATIVE (NEGATIVE); CANNABINOID URINE SCREEN PRESUMTIVE POSITIVE (NEGATIVE); ECSTASY MDMA SCREEN URINE NEGATIVE (NEGATIVE); METHADONE URINE SCREEN NEGATIVE (NEGATIVE); OPIATES URINE SCREEN NEGATIVE (NEGATIVE); PHENCYCLIDINE URINE SCREEN PRESUMTIVE POSITIVE (NEGATIVE)
[2023-04-11 12:00] VITALS: BP 112/69; PULSE 67; RESP 20; TEMP 98.1
[2023-04-11] MEDS: CEFTRIAXONE 1,000 MG in DEXTROSE 5% WATER 50 ML IV SCH (14:02)
[2023-04-11 16:00] VITALS: BP 101/59; PULSE 69; RESP 20; TEMP 98
[2023-04-11 19:29] LABS: CLARITY URINE CLEAR (CLEAR); COLOR URINE YELLOW (YELLOW); GLUCOSE URINE NEGATIVE (NEGATIVE); KETONES URINE NEGATIVE (NEGATIVE); LEUKOCYTE ESTERASE URINE TRACE (NEGATIVE); NITRITE URINE NEGATIVE (NEGATIVE); OCCULT BLOOD URINE NEGATIVE (NEGATIVE); PROTEIN URINE NEGATIVE (NEGATIVE); SPECIFIC GRAVITY URINE 1.014 (1.005-1.030)
[2023-04-11 19:57] LABS: BACTERIA URINE TRACE
[2023-04-11 19:58] LABS: RBC URINE NONE SEEN /hpf (0-2); SQUAMOUS EPITHELIAL CELL URINE RARE /lpf (RARE/1+); WBC URINE 0-2 /hpf (0-2)
[2023-04-11 20:00] VITALS: BP 121/52; PULSE 73; RESP 18; TEMP 97.1
[2023-04-11] MEDS: KETOROLAC 15MG/ML VIAL IV PRN (21:41)
[2023-04-12] VITALS: BP 129/66; PULSE 71; RESP 16; TEMP 97.1
[2023-04-12 04:00] VITALS: BP 106/65; PULSE 68; RESP 16; TEMP 96.9
[2023-04-12 08:00] VITALS: BP 100/63; PULSE 73; RESP 20; TEMP 98.2
[2023-04-12] MEDS: ENOXAPARIN 40MG/0.4ML SYR SUBCUT SCH (08:43)
[2023-04-12] MEDS: ASPIRIN 81MG TABLET PO SCH (08:44)
[2023-04-12] MEDS: FUROSEMIDE 40MG/4ML VIAL IVP SCH (08:44)
[2023-04-12] MEDS: AMLODIPINE 5MG TABLET PO SCH (08:44)
[2023-04-12] MEDS: FAMOTIDINE 20MG TABLET PO SCH (08:44)
[2023-04-12] MEDS ORDERED: AMLO5TAB4 MT (09:10)
[2023-04-12 10:30] LABS: HEMATOCRIT 38.5 % (42.0-52.0); HEMOGLOBIN 12.5 g/dL (14.0-18.0); MEAN CORPUSCULAR HEMOGLOBIN 29.3 pg (28.0-32.0); MEAN CORPUSCULAR HGB CONC 32.4 g/dL (31.0-37.0); MEAN CORPUSCULAR VOLUME 90.5 fL (80.0-94.0); PLATELET 319 x1000/uL (130-400); RED BLOOD CELL COUNT 4.26 mill/uL (4.7-6.1); RED CELL DISTRIBUTION WIDTH 13.7 % (11.6-14.6); WHITE BLOOD COUNT 9.4 x1000/uL (4.5-11.0)
[2023-04-12 10:35] LABS: CHLORIDE 98 mEq/L (98-107); INDEX HEMOLYSI 1 (1-3); INDEX ICTERIC 1 (1-4); INDEX LIPEMIC 1 (1-3); POTASSIUM 4.2 mEq/L (3.5-5.1); SODIUM 133 mEq/L (136-145)
[2023-04-12 10:43] LABS: CALCIUM 9.2 mg/dL (8.5-10.1); CARBON DIOXIDE 30 mEq/L (21-32); CREATININE 0.8 mg/dL (0.6-1.3); GLUCOSE 139 mg/dL (70-105); PHOSPHORUS 2.7 mg/dL (2.5-4.9); UREA NITROGEN BLOOD 19 mg/dL (7-21)
[2023-04-12 12:00] VITALS: BP 100/61; PULSE 73; RESP 20; TEMP 97
[2023-04-12 12:51] VITALS: BP 110/65; PULSE 77; TEMP 98.3; O2SAT 100
[2023-04-12] MEDS: CEFTRIAXONE 1,000 MG in DEXTROSE 5% WATER 50 ML IV SCH (14:00)
== END 2023-04-12 14:35 | disposition home or self-care (01) | DRG 812 ==
LOC: ER 00:46 → EDBEDREQ 06:35 → EDBEDREQTM 06:35 → 8WST 18:34
PROVIDERS: ADMIT Internal Medicine; ATTEND Internal Medicine
DX: T40.991A Poisoning by other psychodysleptics [hallucinogens], accidental (unintentional), initial encounter (principal); J96.00 Acute respiratory failure, unspecified whether with hypoxia or hypercapnia; I50.43 Acute on chronic combined systolic (congestive) and diastolic (congestive) heart failure; I21.A1 Myocardial infarction type 2; E43 Unspecified severe protein-calorie malnutrition; G82.20 Paraplegia, unspecified; N17.9 Acute kidney failure, unspecified; J44.1 Chronic obstructive pulmonary disease with (acute) exacerbation; J45.901 Unspecified asthma with (acute) exacerbation; I11.0 Hypertensive heart disease with heart failure; D64.9 Anemia, unspecified; I16.0 Hypertensive urgency; R74.01 Elevation of levels of liver transaminase levels; R73.9 Hyperglycemia, unspecified; D72.829 Elevated white blood cell count, unspecified; F17.200 Nicotine dependence, unspecified, uncomplicated; Z68.24 Body mass index [BMI] 24.0-24.9, adult; T50.995A Adverse effect of other drugs, medicaments and biological substances, initial encounter; Z79.82 Long term (current) use of aspirin; Z88.0 Allergy status to penicillin; Z79.02 Long term (current) use of antithrombotics/antiplatelets; Z79.899 Other long term (current) drug therapy; Y92.89 Other specified places as the place of occurrence of the external cause
CPT/HCPCS: 36415; 71045; 76700; 80048; 80053; 80061; 80305; 80320; 81003; 82550; 82553; 82607; 82728; 82746; 83036; 83540; 83550; 83605; 83735; 83880; 84100; 84145; 84439; 84443; 84484; 85025; 85027; 86850; 86900; 93308; 93970; 94640; 99291; J0696; J1650; J1885; J1940; J2060; J2270; J3475; J7060; Q9967; G0480